=== PATIENT | female | born 1965 | race Caucasian/White ===

== ENCOUNTER 2017-08-17 08:06 | Emergency (ER) | payer MEDICAID ==
[~2017-08-17] VITALS: Ht 167.6 cm; Wt 56.4 kg
[2017-08-17] MEDS ORDERED: LORazepam 2 mg/ml vial IV ONE (08:40)
[2017-08-17 09:09] LABS: BASOPHILS % (AUTO) 0.4 % (0-1); EOSINOPHILS # (AUTO) 0.1 X10'3 (0-0.9); EOSINOPHILS % (AUTO) 1.6 % (0-6); HEMATOCRIT 33.8 % (35.0-45.0); LYMPHOCYTES % (AUTO) 17.1 % (21-51); MEAN CORPUSCULAR HEMOGLOBIN 32.9 PG (27.0-31.0); MEAN CORPUSCULAR HGB CONC 35.5 % (33.0-36.5); MEAN CORPUSCULAR VOLUME 92.6 FL (78-98); MEAN PLATELET VOLUME 7.4 FL (7.4-10.4); MONOCYTES # (AUTO) 0.4 X10'3 (0-0.9); MONOCYTES % (AUTO) 6.5 % (2-12); NEUTROPHILS # (AUTO) 4.5 X10'3 (1.8-7.7); NEUTROPHILS % (AUTO) 74.4 % (42-75); PLATELET COUNT 232 X10'3 (140-440); RED BLOOD COUNT 3.65 X10'6 (4.20-5.60); RED CELL DISTRIBUTION WIDTH 12.4 % (11.5-14.5)
[2017-08-17 09:11] LABS: PARTIAL THROMBOPLASTIN TIME 25 SECONDS (22-32)
[2017-08-17 09:19] LABS: ALANINE AMINOTRANSFERASE 37 U/L (12-78); ALBUMIN 4.2 G/DL (3.4-5.0); ALBUMIN/GLOBULIN RATIO 1.3 (1.1-1.5); ALKALINE PHOSPHATASE 72 IU/L (46-116); ANION GAP 8 (8-16); ASPARTATE AMINO TRANSFERASE 23 U/L (10-37); BILIRUBIN,TOTAL 0.2 MG/DL (0.1-1.0); BLOOD UREA NITROGEN 12 MG/DL (7-18); BUN/CREATININE RATIO 17.1 (6.6-38.0); CALCIUM 9.1 MG/DL (8.5-10.1); CHLORIDE 102 MMOL/L (99-107); ETHANOL < 0.010 GM/DL (0.0-0.010); GLUCOSE 104 MG/DL (70-104); POTASSIUM 3.7 MMOL/L (3.5-5.1); SODIUM 139 MMOL/L (135-145); TOTAL CARBON DIOXIDE 29.5 MMOL/L (24-32); TOTAL PROTEIN 7.5 G/DL (6.4-8.2); eGFR 87 ML/MIN
[2017-08-17 09:19] LABS: URINE HCG NEGATIVE (NEG)
[2017-08-17 09:22] LABS: CLARITY,URINE CLEAR (Clear); COLOR,URINE STRAW (Yellow); GLUCOSE, URINE NEGATIVE (Neg); KETONES,URINE NEGATIVE (Neg); LEUKOCYTE ESTERASE ,URINE NEGATIVE (Neg); NITRITES, URINE NEGATIVE (Neg); OCCULT BLOOD,URINE MODERATE (Neg); PROTEIN,URINE NEGATIVE (Neg); UROBILINOGEN,URINE 0.2 E.U/dL (0.2-1.0)
[2017-08-17 09:25] LABS: UA COLLECTION TYPE CLN CATCH MIDSTREAM
[2017-08-17 09:29] LABS: SQUAMOUS EPITHELIAL CELL,UR FEW /LPF (FEW)
[2017-08-17 09:31] LABS: BACTERIA,URINE NONE SEEN /HPF (Neg); RBC,URINE 0-2 /HPF (0-2); WBC,URINE 0-4 /HPF (0-4)
[2017-08-17 09:39] LABS: URINE AMPHETAMINE SCREEN NEGATIVE (Neg); URINE BARBITUATE SCREEN NEGATIVE (Neg); URINE BENZODIAZEPINES SCREEN NEGATIVE (Neg); URINE CANNABINOID SCREEN POSITIVE (Neg); URINE COCAINE SCREEN NEGATIVE (Neg); URINE METHADONE SCREEN NEGATIVE (Neg); URINE OPIATE SCREEN NEGATIVE (Neg); URINE PHENCYCLIDINE SCREEN NEGATIVE (Neg)
[2017-08-17 11:29] VITALS: BP 118/76
== END 2017-08-17 11:32 | disposition home or self-care (01) ==
LOC: ER 08:07
DX: F41.9 Anxiety disorder, unspecified (principal)
CPT/HCPCS: 36415; 71045; 80053; 80305; 80320; 81001; 81025; 84484; 85025; 85610; 85730; 93005; 96374; 99285; J2060

== ENCOUNTER 2018-01-07 07:23 | Emergency (ER) | payer MEDICAID ==
[~2018-01-07] VITALS: Ht 167.6 cm; Wt 58.0 kg
[2018-01-07 07:28] VITALS: BP 146/98
[2018-01-07] MEDS ORDERED: acetaminophen 325mg tablet PO ONE (07:55)
== END 2018-01-07 08:50 | disposition home or self-care (01) ==
LOC: ER 07:23
DX: M25.511 Pain in right shoulder (principal); G89.29 Other chronic pain
CPT/HCPCS: 73030; 99284; A4565

== ENCOUNTER 2019-05-13 07:02 | Emergency (ER) | payer MEDICARE, MEDICAID ==
[~2019-05-13] VITALS: Ht 167.6 cm; Wt 63.0 kg
--- NOTE | 2019-05-13 07:15 | NUR ---
PATIENT AMBULATED SELF TO THE BATHROOM.
--- NOTE | 2019-05-13 07:20 | NUR ---
AWAITING ED MD.
--- NOTE | 2019-05-13 07:59 | NUR ---
Dr. Robb at bedside.
[2019-05-13] MEDS ORDERED: ondansetron 4mg/5ml UD cup PO ONE (08:10)
[2019-05-13 08:15] VITALS: BP 113/64
== END 2019-05-13 08:17 | disposition home or self-care (01) ==
LOC: ER 07:02
DX: S06.0X0A Concussion without loss of consciousness, initial encounter (principal); G89.29 Other chronic pain; W22.8XXA Striking against or struck by other objects, initial encounter; Y93.89 Activity, other specified; Y92.89 Other specified places as the place of occurrence of the external cause; Y99.9 Unspecified external cause status
CPT/HCPCS: 99283

== ENCOUNTER 2020-01-10 07:46 | Day surgery (SDC) | payer MEDICARE, MEDICAID ==
[2020-01-03 12:32] LABS: BASOPHILS % (AUTO) 0.4 % (0-1); EOSINOPHILS # (AUTO) 0.1 X10'3 (0-0.9); EOSINOPHILS % (AUTO) 1.4 % (0-6); LYMPHOCYTES # (AUTO) 1.6 X10'3 (1.1-4.8); LYMPHOCYTES % (AUTO) 26.7 % (21-51); MEAN CORPUSCULAR HEMOGLOBIN 31.9 PG (27.0-31.0); MEAN CORPUSCULAR HGB CONC 33.4 g/dL (33.0-36.5); MEAN CORPUSCULAR VOLUME 95.4 FL (78-98); MEAN PLATELET VOLUME 7.8 FL (7.4-10.4); MONOCYTES # (AUTO) 0.5 X10'3 (0-0.9); MONOCYTES % (AUTO) 8.4 % (2-12); NEUTROPHILS # (AUTO) 3.8 X10'3 (1.8-7.7); NEUTROPHILS % (AUTO) 63.1 % (42-75); PRE OP HEMATOCRIT 40.9 % (35.0-45.0); PRE OP HEMOGLOBIN 13.7 g/dL (12.0-16.0); PRE OP PLATELET COUNT 257 X10'3 (140-440); RED BLOOD COUNT 4.29 X10'6 (4.20-5.60); RED CELL DISTRIBUTION WIDTH 12.3 % (11.5-14.5)
[2020-01-03 12:41] LABS: ALBUMIN/GLOBULIN RATIO 1.2 (1.1-1.5); ALKALINE PHOSPHATASE 80 IU/L (46-116); BLOOD UREA NITROGEN 9 MG/DL (7-18); BUN/CREATININE RATIO 12.3 (6.6-38.0); CALCIUM 9.1 MG/DL (8.5-10.1); CHLORIDE 105 MMOL/L (99-107); CREATININE 0.73 MG/DL (0.40-0.90); PRE OP ALT 21 U/L (30-65); PRE OP ANION GAP 6 (8-16); PRE OP AST 15 U/L (10-37); PRE OP BILIRUB, TOTAL 0.3 MG/DL (0.0-1.0); PRE OP GLUCOSE 97 MG/DL (70-104); PRE OP POTASSIUM 3.7 MMOL/L (3.4-5.1); PRE OP SODIUM 143 MMOL/L (135-145); TOTAL CARBON DIOXIDE 32.5 MMOL/L (24-32); TOTAL PROTEIN 7.3 G/DL (6.4-8.2); eGFR 82 ML/MIN
[2020-01-10] VITALS (8 sets, daily range): BP systolic 115–140; BP diastolic 67–88
[~2020-01-10] VITALS: Ht 167.6 cm; Wt 59.0 kg
[~2020-01-10 07:46] MED LIST: ACYC-202 PO; BUPIVAcaine 0.5% W/EPI /PF 30ml vial ONE; FLEC50TA28 PO; LIDOcaine 1% W/epiNEPHrine 1:100,000 20ml vial ONE; LORA-269 PO; cefTAZidime 1gm inj ONE; cocaine 4% topical solution 4ml bottle ONE; famotidine 20mg tablet PO ONE; methylPREDNISolone acetate 80mg/ml inj**IM only ONE; mupirocin 2% ointment 22GM ONE; oxymetazoline 15 ML nasal spray NS ONE; ringers solution, lacted 1,000 ML IV SCH; triamcinolone acetonide 40mg/ml inj ONE
[2020-01-10] MEDS ORDERED: ringers solution, lacted 1,000 ML IV SCH (09:19)
[2020-01-10] MEDS ORDERED: proCHLORperazine 10 MG/2 ml inj IV PRN (09:20)
[2020-01-10] MEDS ORDERED: morphine 2 MG/ML inj. syringe IV PRN (09:20)
[2020-01-10] MEDS ORDERED: meperidine/PF 25mg/ml syringe IV PRN ×3 (09:20)
[2020-01-10] MEDS ORDERED: morphine 4 MG/ML inj SYRINge IV PRN (09:20)
[2020-01-10] MEDS ORDERED: ondansetron/PF 4mg/2ml inj IV PRN (09:20)
[2020-01-10] MEDS ORDERED: diazepam 5mg tablet PO ONE (11:05)
[2020-01-10] MEDS ORDERED: glycopyrrolate 0.2mg/ml inj ONE (11:50)
[2020-01-10] MEDS ORDERED: neostigmine methylsulfate 1 MG/ML 10ml vial ONE (11:50)
[2020-01-10] MEDS ORDERED: sevoflurane 250ml liquid IH ONE (11:50)
[2020-01-10] MEDS ORDERED: dexamethasone sod phosphate 10mg/ml inj ONE (11:50)
[2020-01-10] MEDS ORDERED: midazolam 2 mg/2 ml injection ONE (11:59)
[2020-01-10] MEDS ORDERED: fentaNYL /PF 50mcg/ml 5ml ampule ONE (11:59)
[2020-01-10] MEDS ORDERED: LIDOcaine 2% (20mg/ml) 5ml vial ONE (12:01)
[2020-01-10] MEDS ORDERED: propofol inj 20 ML IV ONE (12:01)
[2020-01-10] MEDS ORDERED: ondansetron/PF 4mg/2ml inj ONE (12:11)
--- NOTE | 2020-01-10 13:46 | NUR ---
Received from OR via , accompanied by Anesthesiologist DR PATEL and report given by Anesthesiolgist. AWAKENS TO VOICE. VITALS STABLE. COTTONOIDS TO BILAT NARES,NO BLEEDING NOTED. ANA PAIN.
[2020-01-10] MEDS ORDERED: salt irrigation nasal spray 45 ML SPRAY NS PRN (14:20)
--- NOTE | 2020-01-10 15:06 | NUR ---
AWAKE AND ORIENTED. VITALS STABLE. DRESSING DI. ANA PAIN. HOME WITH HER SPOUSE AT THIS TIME.
[2020-01-10] MEDS ORDERED: oxymetazoline 15 ML nasal spray NS SCH (20:00)
[2020-01-10] MEDS ORDERED: mupirocin 2% ointment 22GM TP SCH (21:00)
== END 2020-01-10 15:06 | disposition home or self-care (01) ==
LOC: PAS 07:46
PROVIDERS: ATTEND Otolaryngology
DX: J34.3 Hypertrophy of nasal turbinates (principal); J34.2 Deviated nasal septum; J32.8 Other chronic sinusitis; J34.89 Other specified disorders of nose and nasal sinuses; F41.9 Anxiety disorder, unspecified; Z79.899 Other long term (current) drug therapy; Z11.59 Encounter for screening for other viral diseases; Z79.01 Long term (current) use of anticoagulants; Z98.51 Tubal ligation status; Z98.890 Other specified postprocedural states; Z72.89 Other problems related to lifestyle; Z88.2 Allergy status to sulfonamides
CPT/HCPCS: 30140; 30520; 31240; 31256; 31259; 36415; 61782; 71046; 80053; 82948; 85025; 85576; 85610; 85730; 87070; 87075; 87102; 87635; 93005; A6402; C1726; C9250; C9803; J0713; J0780; J1040; J1100; J2001; J2250; J2405; J2704; J2710; J3010; J3301; J7040; J7120; U0003; A4618; A7000; J3490

== ENCOUNTER 2024-04-04 11:16 | Emergency (ER) | payer MEDICARE, MEDICAID ==
[~2024-04-04] VITALS: Ht 167.6 cm; Wt 63.0 kg
[~2024-04-04 11:16] MED LIST changes: +ACYC-129 PO; -ACYC-202 PO; -BUPIVAcaine 0.5% W/EPI /PF 30ml vial ONE; -LIDOcaine 1% W/epiNEPHrine 1:100,000 20ml vial ONE; -cefTAZidime 1gm inj ONE; -cocaine 4% topical solution 4ml bottle ONE; -famotidine 20mg tablet PO ONE; -methylPREDNISolone acetate 80mg/ml inj**IM only ONE; -mupirocin 2% ointment 22GM ONE; -oxymetazoline 15 ML nasal spray NS ONE; -ringers solution, lacted 1,000 ML IV SCH; -triamcinolone acetonide 40mg/ml inj ONE
[2024-04-04 11:33] VITALS: BP 124/86; PULSE 71; RESP 18; TEMP 97.7; O2SAT 98
[2024-04-04] MEDS ORDERED: BUTA-245 PO (14:35)
== END 2024-04-04 14:44 | disposition home or self-care (01) ==
LOC: ER 11:17
DX: S00.83XA Contusion of other part of head, initial encounter (principal); S06.0X0A Concussion without loss of consciousness, initial encounter; X58.XXXA Exposure to other specified factors, initial encounter; Z79.899 Other long term (current) drug therapy; Y93.89 Activity, other specified; Y92.89 Other specified places as the place of occurrence of the external cause; Y99.8 Other external cause status
CPT/HCPCS: 99283

== ENCOUNTER 2024-07-18 10:21 | Emergency (ER) | payer MEDICARE, MEDICAID ==
[~2024-07-18] VITALS: Ht 167.6 cm; Wt 61.4 kg
[~2024-07-18 10:21] MED LIST changes: +BUTA-245 PO
[2024-07-18] MEDS ORDERED: PSEU120T56 PO (11:39)
[2024-07-18] MEDS ORDERED: AMOX-580 PO (11:39)
[2024-07-18] MEDS ORDERED: FLUT16SP2 BOTHNARES (11:39)
[2024-07-18 11:58] VITALS: BP 136/76; PULSE 100; RESP 16; TEMP 97.9; O2SAT 97
== END 2024-07-18 11:59 | disposition home or self-care (01) ==
LOC: ER 10:22
DX: J32.0 Chronic maxillary sinusitis (principal); J32.1 Chronic frontal sinusitis
CPT/HCPCS: 99283